=== PATIENT | male | born 1960 | race Caucasian/White ===

== ENCOUNTER 2019-08-20 19:43 | Inpatient (IN) ==
[2019-08-20] MEDS ORDERED: 0.9 % Sodium Chloride 1,000 ML ONE (19:59)
[2019-08-20] MEDS ORDERED: *HR* Midazolam HCl 2 MG/2 ML VIAL ONE (22:38)
[2019-08-20] MEDS ORDERED: *HR* FentaNYL (PF) 100 MCG/2 ML VIAL ONE (22:38)
[2019-08-20] MEDS ORDERED: *HR* Propofol 200 MG/20 ML VIAL IVP ONE (22:38)
[2019-08-20] MEDS ORDERED: Lidocaine -MPF 2% 2 ML VIAL ONE (22:45)
[2019-08-20] MEDS ORDERED: *HR* Succinylcholine 200 MG/10 ML VIAL IVP ONE (22:45)
[2019-08-20] MEDS ORDERED: *HR* Rocuronium Bromide 50 MG/5 ML VIAL ONE (22:45)
[2019-08-20] MEDS ORDERED: Lidocaine HCL 4 ML Topical Solution (Laryng-O-Jet Kit Sterile Pak) TP ONE (22:45)
[2019-08-20] MEDS ORDERED: *HR* OxyCODONE Immed Rel 5 MG TABLET PO PRN (22:58)
[2019-08-20] MEDS ORDERED: *HR* HYDROmorphone (PF) 1 MG/ML SYRINGE IVP PRN (22:58)
[2019-08-20] MEDS ORDERED: Ondansetron 4 MG/2 ML VIAL IVP ONE (22:58)
[2019-08-20] MEDS ORDERED: Piperacillin/Tazobactam 3.375 GM in 0.9 % Sodium Chloride Mini Bag 100 ML IVPB ONE (23:00)
[2019-08-21] MEDS ORDERED: Dexamethasone 4 MG/ML VIAL ONE (00:04)
[2019-08-21] MEDS ORDERED: Ondansetron 4 MG/2 ML VIAL IVP PRN (00:06)
[2019-08-21] MEDS ORDERED: Ringers Solution, Lactated 1,000 ML IVC SCH (00:06)
[2019-08-21] MEDS ORDERED: *HR* HYDROmorphone (PF) 1 MG/ML SYRINGE IVP PRN ×3 (00:06→02:24)
[2019-08-21] MEDS ORDERED: Acetaminophen IV 1,000 MG/100 ML INFUS..BTL ONE (00:11)
[2019-08-21] MEDS ORDERED: *HR* OxyCODONE Immed Rel 5 MG TABLET PO PRN ×2 (00:58→02:24)
[2019-08-21] MEDS ORDERED: Neostigmine Methylsulfate 3 MG/3 ML SYRINGE ONE (01:07)
[2019-08-21] MEDS ORDERED: Acetaminophen 325 MG TABLET PO PRN (02:24)
[2019-08-21] MEDS: Ringers Solution, Lactated 1,000 ML IVC SCH ×2 (02:45→06:55)
[2019-08-21] MEDS: Pantoprazole 40 MG VIAL IVP SCH (05:58)
[2019-08-21 07:15] LABS: Basophils % 0.1 %; Hematocrit 42.4 % (37.5-50.1); Hemoglobin 15.1 g/dL (12.9-16.9); Immature Granulocytes % 0.4 % (0-4); Lymphocytes # 0.5 K/mcL (0.6-4.6); Lymphocytes % 6.4 %; Mean Corpuscular HGB Conc 35.6 g/dL (31.6-35.5); Mean Corpuscular Hemoglobin 33.6 pg (28.0-33.3); Mean Corpuscular Volume 94.4 fL (83.0-100.0); Mean Platelet Volume 9.9 fL (9.4-12.4); Monocytes # 0.5 K/mcL (0.0-1.3); Monocytes % 6.4 %; Neutrophils # 6.6 K/mcL (1.6-8.9); Platelet Count 183 K/mcL (140-400); Red Blood Count 4.49 M/mcL (4.19-5.50); Red Cell Distribution Width 11.8 % (11.5-14.5); Segmented Neutrophils % 86.7 %; White Blood Count 7.6 K/mcL (4.3-11.1)
[2019-08-21 07:41] LABS: BUN/Creatinine Ratio 13 (6-26); Blood Urea Nitrogen 15 mg/dL (6-20); Calcium 8.4 mg/dL (8.6-10.3); Carbon Dioxide 23 mEq/L (23-29); Chloride 107 mEq/L (98-107); Glucose 159 mg/dL (70-105); Osmolality,Calculated 294 (280-300); Potassium 4.1 mEq/L (3.5-5.1); Sodium 140 mEq/L (136-145); eGFR For African Americans > 60 (> 60); eGFR For Non-African Americans > 60 (> 60)
[2019-08-21] MEDS: Piperacillin/Tazobactam 3.375 GM in 0.9 % Sodium Chloride Mini Bag 100 ML IVPB SCH ×3 (08:26→23:31)
[2019-08-21] MEDS ORDERED: Piperacillin/Tazobactam 3.375 GM in 0.9 % Sodium Chloride Mini Bag 100 ML IVPB SCH (10:00)
[2019-08-21] MEDS: D5% in 0.45% NACL 1,000 ML IVC SCH ×2 (13:51→23:31)
[2019-08-22 01:19] LABS: Basophils % 0.1 %; Hematocrit 35.4 % (37.5-50.1); Immature Granulocytes % 0.3 % (0-4); Lymphocytes # 0.8 K/mcL (0.6-4.6); Lymphocytes % 9.3 %; Mean Corpuscular Hemoglobin 33.2 pg (28.0-33.3); Mean Corpuscular Volume 94.9 fL (83.0-100.0); Mean Platelet Volume 10.2 fL (9.4-12.4); Monocytes # 0.9 K/mcL (0.0-1.3); Monocytes % 9.5 %; Neutrophils # 7.3 K/mcL (1.6-8.9); Platelet Count 151 K/mcL (140-400); Red Blood Count 3.73 M/mcL (4.19-5.50); Red Cell Distribution Width 12.1 % (11.5-14.5); Segmented Neutrophils % 80.8 %; White Blood Count 9.1 K/mcL (4.3-11.1)
[2019-08-22 01:23] LABS: Hemoglobin 12.4 g/dL (12.9-16.9)
[2019-08-22 01:41] LABS: BUN/Creatinine Ratio 15 (6-26); Blood Urea Nitrogen 15 mg/dL (6-20); Calcium 8.1 mg/dL (8.6-10.3); Carbon Dioxide 24 mEq/L (23-29); Chloride 107 mEq/L (98-107); Glucose 137 mg/dL (70-105); Osmolality,Calculated 289 (280-300); Potassium 3.6 mEq/L (3.5-5.1); Sodium 138 mEq/L (136-145); eGFR For African Americans > 60 (> 60); eGFR For Non-African Americans > 60 (> 60)
[2019-08-22] MEDS: Pantoprazole 40 MG VIAL IVP SCH (05:39)
[2019-08-22] MEDS: Piperacillin/Tazobactam 3.375 GM in 0.9 % Sodium Chloride Mini Bag 100 ML IVPB SCH ×3 (08:02→23:37)
[2019-08-22] MEDS: Ondansetron 4 MG/2 ML VIAL IVP PRN (08:05)
[2019-08-22] MEDS ORDERED: *HR* OxyCODONE Immed Rel 5 MG TABLET PO PRN (09:52)
[2019-08-22] MEDS: D5% in 0.45% NACL 1,000 ML IVC SCH (19:45)
[2019-08-22] MEDS ORDERED: *HR* Metoprolol 5 MG/5 ML VIAL IVP ONE ×3 (20:26→23:03)
[2019-08-22] MEDS ORDERED: 0.9 % Sodium Chloride 250 ML IVC ONE (20:27)
[2019-08-22 21:12] LABS: Magnesium 2.2 mg/dL (1.6-2.6); Potassium 3.6 mEq/L (3.5-5.1)
[2019-08-22 21:13] LABS: Troponin I < 0.03 ng/mL (< 0.04)
[2019-08-23] MEDS: Ondansetron 4 MG/2 ML VIAL IVP PRN ×2 (01:39→05:14)
[2019-08-23] MEDS: Pantoprazole 40 MG VIAL IVP SCH (05:05)
[2019-08-23] MEDS ORDERED: 0.9 % Sodium Chloride 1,000 ML IVC ONE (06:01)
[2019-08-23] MEDS: Piperacillin/Tazobactam 3.375 GM in 0.9 % Sodium Chloride Mini Bag 100 ML IVPB SCH ×2 (09:22→17:01)
[2019-08-23] MEDS ORDERED: Potassium Chloride 40 MEQ, Lidocaine 1% 2 ML in 0.9 % Sodium Chloride 500 ML IVPB ONE (10:22)
[2019-08-23] MEDS: Metoprolol XL (24 HR) Succ 25 MG TAB.ER.24H PO SCH (13:46)
[2019-08-23 14:10] LABS: Hematocrit 32.5 % (37.5-50.1); Hemoglobin 11.3 g/dL (12.9-16.9)
[2019-08-23 14:43] LABS: Triiodothyronine (T3) Free 2.52 pg/mL (2.50-3.90)
[2019-08-23 15:03] LABS: Estimated Average Glucose 105 mg/dl
[2019-08-24] MEDS: Piperacillin/Tazobactam 3.375 GM in 0.9 % Sodium Chloride Mini Bag 100 ML IVPB SCH ×4 (01:05→23:19)
[2019-08-24 05:11] LABS: Basophils % 0.4 %; Eosinophils # 0.1 K/mcL (0.0-0.6); Eosinophils % 1.4 %; Hematocrit 35.5 % (37.5-50.1); Hemoglobin 12.2 g/dL (12.9-16.9); Immature Granulocytes % 0.3 % (0-4); Lymphocytes # 1.5 K/mcL (0.6-4.6); Lymphocytes % 21.1 %; Mean Corpuscular HGB Conc 34.4 g/dL (31.6-35.5); Mean Corpuscular Hemoglobin 32.9 pg (28.0-33.3); Mean Corpuscular Volume 95.7 fL (83.0-100.0); Mean Platelet Volume 10.1 fL (9.4-12.4); Monocytes # 0.6 K/mcL (0.0-1.3); Monocytes % 8.4 %; Neutrophils # 4.8 K/mcL (1.6-8.9); Platelet Count 169 K/mcL (140-400); Red Blood Count 3.71 M/mcL (4.19-5.50); Red Cell Distribution Width 11.6 % (11.5-14.5); Segmented Neutrophils % 68.4 %
[2019-08-24 05:25] LABS: BUN/Creatinine Ratio 16 (6-26); Blood Urea Nitrogen 13 mg/dL (6-20); Calcium 8.5 mg/dL (8.6-10.3); Carbon Dioxide 23 mEq/L (23-29); Chloride 106 mEq/L (98-107); Glucose 92 mg/dL (70-105); Osmolality,Calculated 284 (280-300); Potassium 3.3 mEq/L (3.5-5.1); Sodium 137 mEq/L (136-145); eGFR For African Americans > 60 (> 60); eGFR For Non-African Americans > 60 (> 60)
[2019-08-24] MEDS: Pantoprazole 40 MG VIAL IVP SCH (05:26)
[2019-08-24] MEDS: Aspirin Enteric Coated 81 MG Tablet PO SCH (08:57)
[2019-08-24] MEDS: Metoprolol XL (24 HR) Succ 25 MG TAB.ER.24H PO SCH (08:57)
[2019-08-24] MEDS ORDERED: Metoprolol XL (24 HR) Succ 25 MG TAB.ER.24H PO ONE (10:00)
[2019-08-25 07:54] VITALS: BP 120/83
[2019-08-25] MEDS: Piperacillin/Tazobactam 3.375 GM in 0.9 % Sodium Chloride Mini Bag 100 ML IVPB SCH (08:53)
[2019-08-25] MEDS: Aspirin Enteric Coated 81 MG Tablet PO SCH (08:53)
[2019-08-25] MEDS ORDERED: Metoprolol XL (24 HR) Succ 25 MG TAB.ER.24H PO SCH (09:00)
== END 2019-08-25 12:32 | disposition home or self-care (01) | DRG 329 ==
LOC: 3ANU 19:43 → EMEROOARM 19:43 → SUATTDRO 20:50 → 3ANU 21:36
PROVIDERS: ADMIT Surgery; ATTEND Student in an Organized Health Care Education/Training Program